=== PATIENT | female | born 1960 | race Caucasian/White ===

== ENCOUNTER 2017-05-29 18:45 | Emergency (ER) | payer BC, SELFPAY ==
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
[2017-05-29] MEDS ORDERED: Famotidine 20 MG/2 ML SDV IVPUSH ONE (19:05)
[2017-05-29] MEDS ORDERED: Ondansetron 4 MG/2 ML SDV IVPUSH ONE (19:05)
[2017-05-29] MEDS ORDERED: Lactated Ringers 1,000 ML IV ONE (19:05)
[2017-05-29] MEDS ORDERED: Pantoprazole 40 MG Vial IVPUSH ONE (19:05)
[2017-05-29] MEDS ORDERED: cefTRIAXone 1 GM in Sodium Chloride 0.9% 100 ML IV SCH (19:15)
[2017-05-29] MEDS ORDERED: metroNIDAZOLE/Normal Saline 500 MG in Premix Bag 1 BAG IV SCH (19:15)
[2017-05-29] MEDS: Sodium Chloride 0.9% 10 ML Syringe FLUSH PRN ×4 (19:32→20:18)
[2017-05-29 19:48] LABS: CHLORIDE,CL 106 mmol/L (98-107); SODIUM,NA 140 mmol/L (136-145)
[2017-05-29] MEDS ORDERED: Metoclopramide 10 MG/2 ML SDV IVPUSH ONE (20:10)
[2017-05-29] MEDS ORDERED: Iopamidol 612 MG/ML 100 ML Bottle IVPUSH ONE (20:15)
== END 2017-05-29 22:55 ==
LOC: LL.ED 18:45
DX: R10.33 Periumbilical pain (principal); F41.8 Other specified anxiety disorders; E66.9 Obesity, unspecified; M15.0 Primary generalized (osteo)arthritis; E78.5 Hyperlipidemia, unspecified; Z87.891 Personal history of nicotine dependence
CPT/HCPCS: 36415; 74177; 80053; 81001; 82150; 82272; 83605; 83690; 83735; 84550; 85025; 85610; 85730; 87086; 87088; 96361; 96365; 96367; 96375; 99285; C9113; J0696; J2405; J2765; J7050; J7120; Q9967; 87186; S0028

== ENCOUNTER 2021-03-01 19:05 | Emergency (ER) | payer MEDICARE, OTHER ==
[2021-03-01] MEDS ORDERED: Bupivacaine 0.5% 10 ML SDV INJECT ONE (19:09)
[2021-03-01 19:13] VITALS: BP 153/72; PULSE 84
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
[2021-03-01] MEDS ORDERED: Bacitracin/Neomycin/Polymyxin B Oint 0.9 GM U/D Packet TOP ONE (20:13)
[2021-03-01] MEDS ORDERED: Bacitracin/Neomycin/Polymyxin B Oint 0.9 GM U/D Packet ONE (20:13)
== END 2021-03-01 20:37 | disposition home or self-care (01) ==
LOC: LL.ED 19:05
DX: S61.011A Laceration without foreign body of right thumb without damage to nail, initial encounter (principal); E66.9 Obesity, unspecified; Z68.36 Body mass index [BMI] 36.0-36.9, adult; W26.8XXA Contact with other sharp object(s), not elsewhere classified, initial encounter
CPT/HCPCS: 12001; 99282-25; 99283; J3490